=== PATIENT | male | born 1995 | race Caucasian/White ===

== ENCOUNTER 2018-03-22 01:08 | Emergency (ER) | payer OTHER ==
[~2018-03-22] VITALS: Ht 167.6 cm; Wt 107.7 kg
[~2018-03-22 01:08] MED LIST: AMBIEN CR12.5 MG PO; ATIVAN0.5 MG PO; CYMBALTA20 MG PO; DEPO-TESTOS100 MG/ML IM; VENLAFAXINE HCL75 M3 PO
[2018-03-22] MEDS ORDERED: BENADRYL50 MG PO (01:31)
[2018-03-22] MEDS ORDERED: KENALOG,ARISTOC80 G1 TP (01:31)
[2018-03-22] MEDS ORDERED: PREDNISONE20 MG PO (01:31)
[2018-03-22 01:39] VITALS: BP 122/98
== END 2018-03-22 01:42 | disposition home or self-care (01) ==
LOC: EME 01:08
DX: L25.9 Unspecified contact dermatitis, unspecified cause (principal); Z90.13 Acquired absence of bilateral breasts and nipples
CPT/HCPCS: 99281; 99283; J7512